=== PATIENT | male | born 1945 | race Caucasian/White ===

== ENCOUNTER 2018-02-14 14:47 | Inpatient (IN) | payer MEDICARE, OTHER ==
[~2018-02-14] VITALS: Ht 180.3 cm; Wt 75.1 kg
[2018-02-14] MEDS ORDERED: ASPIRIN 325 MG TABLET PO STA (15:00)
[2018-02-14 15:19] LABS: BASOPHILS # (AUTO) 0.02 x10^3/uL (0-0.1); BASOPHILS % (AUTO) 0 % (0-1); EOSINOPHILS # (AUTO) 0.08 x10^3/uL (0-0.4); EOSINOPHILS % (AUTO) 1 % (1-7); LYMPHOCYTES # (AUTO) 1.69 x10^3/uL (1-3.4); LYMPHOCYTES % (AUTO) 16 % (22-44); MD NO; MEAN CORPUSCULAR HEMOGLOBIN 31.9 pg (27.5-34.5); MEAN CORPUSCULAR HGB CONC 33.5 g/dL (33.2-36.2); MEAN CORPUSCULAR VOLUME 95.1 fL (81-97); MEAN PLATELET VOLUME 8.3 fL (7.4-10.4); MONOCYTES # (AUTO) 0.79 x10^3/uL (0.2-0.8); MONOCYTES % (AUTO) 7 % (2-9); NEUTROPHILS # (AUTO) 8.32 x10^3/uL (1.8-6.8); NEUTROPHILS % (AUTO) 76 % (42-75); PLATELET COUNT 249 x10^3/uL (130-400); RED BLOOD COUNT 5.11 x10^6/uL (4.38-5.82); RED CELL DISTRIBUTION WIDTH 13.6 % (9.4-14.8)
[2018-02-14 15:28] LABS: INTERNATIONAL NORMALIZED RATIO 1.03 (0.93-1.1); PROTHROMBIN TIME 10.7 Seconds (9.6-11.5)
[2018-02-14] MEDS ORDERED: NITROGLYCERIN 0.4 MG BOTTLE (25 TABS) SL PRN (15:30)
[2018-02-14] MEDS ORDERED: ATORVASTATIN 80 MG TABLET PO ONE (15:30)
[2018-02-14] MEDS ORDERED: BIVALIRUDIN 250 MG in DEXTROSE 5% 50 ML IV SCH (16:15)
[2018-02-14] MEDS ORDERED: PHENYLEPHRINE 10 MG/ML ONE (16:19)
[2018-02-14] MEDS ORDERED: DOPAMINE/D5W PMX 250 ML ONE (16:19)
[2018-02-14] MEDS ORDERED: ACETAMINOPHEN 325 MG TABLET PO PRN (16:30)
[2018-02-14] MEDS ORDERED: DOPAMINE/D5W PMX 250 ML IV PRN (16:30)
[2018-02-14] MEDS ORDERED: ONDANSETRON 2MG/ML, 2ML IVPush PRN (16:30)
[2018-02-14] MEDS: SODIUM CHLORIDE 0.9% 1,000 ML IV SCH (17:17)
[2018-02-14] MEDS: ATORVASTATIN 40 MG TABLET PO SCH (21:00)
[2018-02-14] MEDS: ZOLPIDEM 5MG TABLET PO PRN (22:56)
[2018-02-14 23:04] LABS: TROPONIN I > 200.000 ng/mL (0.000-0.045)
[2018-02-15] MEDS: SODIUM CHLORIDE 0.9% 1,000 ML IV SCH (00:15)
[2018-02-15] MEDS: ZOLPIDEM 5MG TABLET PO PRN (00:46)
[2018-02-15 04:00] VITALS: BP 104/60
[2018-02-15 04:34] LABS: ANION GAP 6 mmol/L (5-15); CALCIUM 8.5 mg/dL (8.5-10.1); CHLORIDE 113 mmol/L (98-107); CREATININE 1.24 mg/dL (0.7-1.3)
[2018-02-15] MEDS ORDERED: LISI1TAB7 PO (07:19)
[2018-02-15] MEDS: METOPROLOL TARTRATE 25 MG TABLET PO SCH ×2 (09:21→18:23)
[2018-02-15] MEDS: PRASUGREL 10 MG TABLET PO SCH (09:21)
[2018-02-15] MEDS: ASPIRIN 81 MG TABLET EC PO SCH (09:21)
[2018-02-15 14:00] VITALS: BP 108/64
[2018-02-15 19:18] VITALS: BP 104/68
[2018-02-15 21:22] VITALS: BP 103/70
[2018-02-15] MEDS: ATORVASTATIN 40 MG TABLET PO SCH (21:23)
[2018-02-15 22:54] VITALS: BP 116/74
[2018-02-16 01:02] VITALS: BP 105/66
[2018-02-16 05:15] LABS: ANION GAP 7 mmol/L (5-15); CALCIUM 7.9 mg/dL (8.5-10.1); CHLORIDE 112 mmol/L (98-107)
[2018-02-16 05:21] LABS: CHOL/HDL RATIO 2.6; CHOLESTEROL, TOTAL 119 mg/dL (140-239); HDL CHOL % 39 % (26-37); HDL CHOLESTEROL (DIRECT) 46 mg/dL (40-60); LDL CHOLESTEROL,CALCULATED 56 mg/dL (54-169); LDL/HDL RATIO 1.2 (0.5-3.0); TRIGLYCERIDES 84 mg/dL (50-200); VLDL CHOLESTEROL 17 mg/dL (0-25)
[2018-02-16 05:31] VITALS: BP 101/67
[2018-02-16] MEDS: METOPROLOL TARTRATE 25 MG TABLET PO SCH (05:34)
[2018-02-16] MEDS: ASPIRIN 81 MG TABLET EC PO SCH (05:36)
[2018-02-16 08:04] VITALS: BP 101/67
[2018-02-16] MEDS: PRASUGREL 10 MG TABLET PO SCH (09:15)
[2018-02-16] MEDS ORDERED: ATOR40TA78 PO (11:23)
[2018-02-16] MEDS ORDERED: METO25TA35 PO (11:23)
[2018-02-16] MEDS ORDERED: PRAS10TA4 PO (11:23)
[2018-02-16] MEDS ORDERED: ASPI-621 PO (11:23)
== END 2018-02-16 12:50 | disposition home or self-care (01) | DRG 246 ==
LOC: ED 15:18 → EDIP 15:19 → ED 15:28 → CCU 16:14 → 5SO 02-15 11:43 → DCLOUNGE 02-16 12:31
PROVIDERS: ADMIT Internal Medicine Cardiovascular Disease; ATTEND Internal Medicine Cardiovascular Disease
PROC: 027034Z Dilation of Coronary Artery, One Artery with Drug-eluting Intraluminal Device, Percutaneous Approach (ICD-10-PCS; principal; 2018-02-14)
PROC: 4A023N7 Measurement of Cardiac Sampling and Pressure, Left Heart, Percutaneous Approach (ICD-10-PCS; 2018-02-14)
PROC: B2111ZZ Fluoroscopy of Multiple Coronary Arteries using Low Osmolar Contrast (ICD-10-PCS; 2018-02-14)
PROC: B2151ZZ Fluoroscopy of Left Heart using Low Osmolar Contrast (ICD-10-PCS; 2018-02-14)
DX: I21.19 ST elevation (STEMI) myocardial infarction involving other coronary artery of inferior wall (principal); N17.0 Acute kidney failure with tubular necrosis; I47.2 Ventricular tachycardia; I95.9 Hypotension, unspecified; I25.10 Atherosclerotic heart disease of native coronary artery without angina pectoris; I25.5 Ischemic cardiomyopathy; E78.5 Hyperlipidemia, unspecified; I10 Essential (primary) hypertension; Z79.82 Long term (current) use of aspirin; Z79.899 Other long term (current) drug therapy; Z82.3 Family history of stroke; Z87.891 Personal history of nicotine dependence
CPT/HCPCS: 36415; 71045; 80047; 80048; 80061; 82040; 83735; 84484; 85014; 85018; 85025; 85610; 85730; 87081; 93005; 93306; 93458; 99156; 99157; 99291; C1760; C1769; C1894; J1265; C1874; C1887; J2370; J7030; Q9967

== ENCOUNTER 2018-02-14 15:01 | Emergency (ER) | payer MEDICARE ==
[~2018-02-14] VITALS: Ht 177.8 cm; Wt 77.0 kg
[~2018-02-14 15:01] MED LIST: ASPIRIN 81 MG TABLET CHEW PO ONE; NITROGLYCERIN 0.4 MG BOTTLE (25 TABS) SL PRN
[2018-02-14 15:06] VITALS: BP 143/96
[2018-02-14] MEDS ORDERED: FENTANYL PF 100 MCG/2ML ONE (15:22)
[2018-02-14] MEDS ORDERED: MIDAZOLAM 1 MG/ML, 5ML ONE (15:22)
[2018-02-14] MEDS ORDERED: BIVALIRUDIN 250 MG ONE (15:22)
[2018-02-14] MEDS ORDERED: VERAPAMIL 2.5 MG/ML, 2ML ONE (15:22)
[2018-02-14] MEDS ORDERED: PRASUGREL 10 MG TABLET ONE (15:46)
[2018-02-14] MEDS ORDERED: ASPIRIN 81 MG TABLET CHEW ONE (16:20)
[2018-02-14] MEDS ORDERED: METOPROLOL TARTRATE 50 MG TABLET PO SCH (21:00)
[2018-02-14] MEDS ORDERED: ATORVASTATIN 80 MG TABLET PO SCH (21:00)
[2018-02-15] MEDS ORDERED: ASPIRIN 81 MG TABLET EC PO SCH (06:00)
[2018-02-15] MEDS ORDERED: LISI1TAB7 PO (07:19)
[2018-02-15] MEDS ORDERED: LISINOPRIL 10 MG TABLET PO SCH (09:00)
== END 2018-02-14 15:24 ==
LOC: ED 15:18
DX: R07.89 Other chest pain (principal); Z53.21 Procedure and treatment not carried out due to patient leaving prior to being seen by health care provider
CPT/HCPCS: J0583; J2250; J3010

== ENCOUNTER → 2018-03-25 | Outpatient (CLI) | payer MEDICARE, OTHER ==
[~2018-03-25] MED LIST changes: +ASPI-621 PO; -ASPIRIN 81 MG TABLET CHEW PO ONE; +ATOR40TA78 PO; +LISI1TAB7 PO; +METO25TA35 PO; -NITROGLYCERIN 0.4 MG BOTTLE (25 TABS) SL PRN; +PRAS10TA4 PO
[2018-03-25 09:45] LABS: ALANINE AMINOTRANSFERASE 33 U/L (12-78); ALBUMIN 3.6 g/dL (3.4-5.0); ANION GAP 7 mmol/L (5-15); CALCIUM 8.7 mg/dL (8.5-10.1); CHLORIDE 113 mmol/L (98-107)
[2018-03-25 09:48] LABS: ALKALINE PHOSPHATASE 91 U/L (45-117); BILIRUBIN,TOTAL 0.7 mg/dL (0.2-1.0); CHOL/HDL RATIO 1.7; CHOLESTEROL, TOTAL 100 mg/dL (140-239); CREATININE 1.26 mg/dL (0.7-1.3); HDL CHOL % 59 % (26-37); HDL CHOLESTEROL (DIRECT) 59 mg/dL (40-60); LDL CHOLESTEROL,CALCULATED 32 mg/dL (54-169); LDL/HDL RATIO 0.5 (0.5-3.0); TOTAL PROTEIN 7.2 g/dL (6.4-8.2); TRIGLYCERIDES 47 mg/dL (50-200); VLDL CHOLESTEROL 9 mg/dL (0-25)
== END | disposition home or self-care (01) ==
LOC: LAB 09:10
PROVIDERS: ATTEND Internal Medicine Cardiovascular Disease
DX: I22.1 Subsequent ST elevation (STEMI) myocardial infarction of inferior wall (principal); E78.2 Mixed hyperlipidemia; M79.673 Pain in unspecified foot; Z98.61 Coronary angioplasty status
CPT/HCPCS: 36415; 80053; 80061; 84550

== ENCOUNTER → 2018-06-15 | Outpatient (CLI) | payer MEDICARE, OTHER | END | disposition home or self-care (01) | LOC: CFH 08:41 | PROVIDERS: ATTEND Internal Medicine Cardiovascular Disease | DX: I25.5 Ischemic cardiomyopathy (principal); I21.19 ST elevation (STEMI) myocardial infarction involving other coronary artery of inferior wall; Z98.61 Coronary angioplasty status | CPT/HCPCS: 78452; 93017; A9502 ==

== ENCOUNTER → 2018-07-12 | Outpatient (CLI) | payer MEDICARE, OTHER | END | disposition home or self-care (01) | LOC: PETCFH 10:58 | PROVIDERS: ATTEND Internal Medicine Cardiovascular Disease | DX: I42.9 Cardiomyopathy, unspecified (principal) | CPT/HCPCS: 78472; A9560 ==

== ENCOUNTER 2020-03-14 08:10 | Outpatient (CLI) | payer MEDICARE, OTHER ==
[~2020-03-14 08:10] MED LIST changes: -ASPI-621 PO; +ASPI81TA45 PO; +LISI1TAB20 PO; -LISI1TAB7 PO
[2020-03-14 08:29] LABS: BASOPHILS # (AUTO) 0.02 x10^3/uL (0-0.1); BASOPHILS % (AUTO) 0 % (0-1); EOSINOPHILS # (AUTO) 0.42 x10^3/uL (0-0.4); EOSINOPHILS % (AUTO) 5 % (1-7); LYMPHOCYTES # (AUTO) 1.79 x10^3/uL (1-3.4); LYMPHOCYTES % (AUTO) 23 % (22-44); MD NO; MEAN CORPUSCULAR HEMOGLOBIN 32.9 pg (27.5-34.5); MEAN CORPUSCULAR VOLUME 99.7 fL (81-97); MEAN PLATELET VOLUME 7.8 fL (7.4-10.4); MONOCYTES # (AUTO) 0.67 x10^3/uL (0.2-0.8); MONOCYTES % (AUTO) 9 % (2-9); NEUTROPHILS # (AUTO) 4.91 x10^3/uL (1.8-6.8); NEUTROPHILS % (AUTO) 63 % (42-75); PLATELET COUNT 192 x10^3/uL (130-400); RED BLOOD COUNT 5.02 x10^6/uL (4.38-5.82); RED CELL DISTRIBUTION WIDTH 13.5 % (9.4-14.8)
[2020-03-14 08:38] LABS: ALANINE AMINOTRANSFERASE 30 U/L (12-78); ALBUMIN 3.4 g/dL (3.4-5.0); ANION GAP 3 mmol/L (5-15); CALCIUM 8.4 mg/dL (8.5-10.1); CHLORIDE 113 mmol/L (98-107); CHOLESTEROL, TOTAL 122 mg/dL (140-239)
[2020-03-14 08:40] LABS: ALKALINE PHOSPHATASE 80 U/L (45-117); BILIRUBIN,TOTAL 0.6 mg/dL (0.2-1.0); CHOL/HDL RATIO 2.2; HDL CHOL % 45 % (26-37); HDL CHOLESTEROL (DIRECT) 55 mg/dL (40-60); LDL CHOLESTEROL,CALCULATED 55 mg/dL (54-169); TOTAL PROTEIN 6.6 g/dL (6.4-8.2); TRIGLYCERIDES 62 mg/dL (50-200); VLDL CHOLESTEROL 12 mg/dL (0-25)
== END 2020-03-14 23:59 | disposition home or self-care (01) ==
LOC: LAB 08:10
PROVIDERS: ATTEND Internal Medicine Cardiovascular Disease
DX: E78.2 Mixed hyperlipidemia (principal)
CPT/HCPCS: 36415; 80053; 80061; 85025

== ENCOUNTER → 2021-03-27 | Outpatient (CLI) | payer MEDICARE, OTHER ==
[2021-03-27 09:13] LABS: ALBUMIN 3.4 g/dL (3.4-5.0); BILIRUBIN, DIRECT 0.2 mg/dL (0.1-0.2)
[2021-03-27 09:15] LABS: BILIRUBIN,INDIRECT 0.6 mg/dL (0.0-2.0); BILIRUBIN,TOTAL 0.8 mg/dL (0.2-1.0); CHOL/HDL RATIO 2.2; TOTAL PROTEIN 6.5 g/dL (6.4-8.2)
== END | disposition home or self-care (01) ==
LOC: LAB 08:44
PROVIDERS: ATTEND Internal Medicine Cardiovascular Disease
DX: E78.2 Mixed hyperlipidemia (principal); I42.9 Cardiomyopathy, unspecified
CPT/HCPCS: 36415; 80061; 80076

== ENCOUNTER → 2021-05-22 | Outpatient (CLI) | payer MEDICARE, OTHER | END | disposition home or self-care (01) | LOC: CFH 07:55 | PROVIDERS: ATTEND Internal Medicine Cardiovascular Disease | DX: I34.0 Nonrheumatic mitral (valve) insufficiency (principal); I42.9 Cardiomyopathy, unspecified | CPT/HCPCS: 93306; 93356 ==